=== PATIENT | female | born 1980 | race Caucasian/White ===

== ENCOUNTER 2016-05-17 12:43 | Inpatient (IN) | payer MEDICAID ==
[~2016-05-17] VITALS: Ht 157.5 cm; Wt 90.3 kg
[2016-05-17 13:02] VITALS: Ht 157.5 cm; Wt 90.3 kg
[2016-05-17 13:10] VITALS: BP 157/75; PULSE 54; RESP 20
[2016-05-17 13:50] LABS: ADD SCAN DIFF NO
[2016-05-17] MEDS ORDERED: MISOPROSTOL 200 MCG TAB PR PRN (14:00)
[2016-05-17] MEDS ORDERED: BUTORPHANOL 2 MG INJ IV PRN (14:00)
[2016-05-17] MEDS ORDERED: LACTATED RINGER'S 1,000 ML IV PRN (14:00)
[2016-05-17] MEDS ORDERED: CARBOPROST 250 MCG INJ IM PRN (14:00)
[2016-05-17] MEDS ORDERED: ACETAMINOPHEN/CODEINE #3 TAB PO PRN (14:00)
[2016-05-17] MEDS ORDERED: OXYTOCIN 30 UNITS/LR 500 ML IV SCH ×2 (14:00)
[2016-05-17] MEDS ORDERED: METHYLERGONOVINE 0.2 MG INJ IM PRN (14:00)
[2016-05-17] MEDS ORDERED: LIDOCAINE 1% (MPF) 30 ML INJ INJ PRN (14:00)
[2016-05-17] MEDS ORDERED: OXYTOCIN 30 UNITS/LR 500 ML IV PRN (14:00)
[2016-05-17] MEDS ORDERED: IBUPROFEN 600 MG TAB PO PRN (14:00)
[2016-05-17 14:01] LABS: ABNORMAL IP MESSAGE 1; BASOPHILS % 0.3 % (0.0-2.0); EOSINOPHILS # 0.1 10^3/ul (0.0-0.5); EOSINOPHILS % 1.6 % (0.0-7.0); HEMATOCRIT 29.3 % (37.0-47.0); HEMOGLOBIN 10.1 g/dl (12.0-16.0); LYMPHOCYTES % 32.1 % (15.0-51.0); MEAN CORPUSCULAR HEMOGLOBIN 30.1 pg (29.0-33.0); MEAN CORPUSCULAR HGB CONC 34.5 g/dl (32.0-37.0); MEAN CORPUSCULAR VOLUME 87.2 fl (82.0-101.0); MEAN PLATELET VOLUME 13.9 fl (7.4-10.4); MONOCYTE # 0.3 10^3/ul (0.3-0.9); MONOCYTES % 5.2 % (0.0-11.0); NEUTROPHIL # 3.8 10^3/ul (1.6-7.5); NEUTROPHILS % 60.5 % (39.0-77.0); PLATELET COUNT 83 10^3/UL (140-415); RED BLOOD COUNT 3.36 10^6/ul (4.20-5.40); RED CELL DISTRIBUTION WIDTH 12.4 % (11.5-14.5); WHITE BLOOD COUNT 6.3 10^3/ul (4.8-10.8)
[2016-05-17 14:11] LABS: INR 0.97; PROTIME 12.9 Sec (12.2-14.2)
[2016-05-17 14:12] LABS: ALBUMIN 2.9 g/dl (3.3-4.9); CHLORIDE 106 mmol/L (97-110); POTASSIUM 3.9 mmol/L (3.5-5.1); SODIUM 134 mmol/L (135-144)
[2016-05-17 14:14] LABS: ANION GAP 10 (8-16); BILIRUBIN,INDIRECT 0.3 mg/dl (0-1.1); BILIRUBIN,TOTAL 0.3 mg/dl (0.2-1.3); CARBON DIOXIDE 22 mmol/L (21-31); CREATININE 0.48 mg/dl (0.44-1.00)
[2016-05-17 14:15] LABS: ALBUMIN/GLOBULIN RATIO 0.96; ALKALINE PHOSPHATASE 146 IU/L (42-121); ASPARTATE AMINO TRANSFERASE 26 IU/L (15-46); BLOOD UREA NITROGEN 9 mg/dl (7-20); TOTAL PROTEIN 5.9 g/dl (6.1-8.1)
[2016-05-17 14:16] LABS: ALANINE AMINOTRANSFERASE 31 IU/L (13-69); CALCIUM 8.4 mg/dl (8.4-10.2); GLUCOSE 86 mg/dl (70-220)
[2016-05-17] MEDS: LACTATED RINGER'S 1,000 ML IV SCH ×2 (14:54→16:44)
[2016-05-17] MEDS ORDERED: PRENAT PO (15:24)
[2016-05-17] MEDS ORDERED: DINOPROSTONE 10 MG VAG SUPP VAG ONE (16:00)
--- NOTE | 2016-05-17 21:25 | HP ---
Date/Time of Note Date/Time of Note DATE: 05/17/16 TIME: 21:19 OB - History Hx of Present Free Text/Dictation sent in by NST for mild elevation of BPs Last Menstrual Period: Aug 14, 2015 Estimated Due Date: May 20, 2016 : 6 Para: 5 Care: Good Care Ultrasounds: Normal mid trimester US Obstetrical Complications: Gestational Diabetes Medical Complications: None Past Family/Social History * Past Medical, Surgical, Family and Obstetric Histories reviewed from chart. Blood Type: O+ Rubella: immune RPR/VDRL: Negative GBS Status: Unknown HBsAG: Negative OB Admission Exam Vital Signs Vital Signs Vital Signs Date Time Temp Pulse Resp B/P Pulse Ox O2 Delivery O2 Flow Rate FiO2 05/17/16 13:10 98.5 54 20 157/75 Room Air Physical Exam HEENT: WNL Heart: Rhythm Normal Lungs: Clear, Equal Abdomen: WNL Extremities: Normal Reflexes: Normal Cervical Dilatation: 1cm Effacement: 25% Station: -3 Membranes: Intact Heart Rate: 130's Accelerations: Accelerations Present Decelerations: No Decelerations Varibility: Moderate Contractions on Admission: None Last 72 hourBlood Glucose Bedside Glucose - 72 Hours Test 05/17/16 20:03 Bedside Glucose 94mg/dL (70-220) Last 72 hours Lab Results CBC & BMP 05/17/16 13:28 Liver Function Test 05/17/16 13:28 Alanine Aminotransferase (ALT/SGPT) 31 Albumin 2.9 L Alkaline Phosphatase 146 H Aspartate Amino Transf (AST/SGOT) 26 Direct Bilirubin 0.00 Total Protein 5.9 L OB Assessment/Plan Reason for admission: induction of labor Other Assessment: GDM Elevated BP Induction Method: per Misoprostol Protocol YELITZA DELVALLE MD May 17, 2016 21:25
[2016-05-17] MEDS ORDERED: MINERAL OIL LIGHT 10 ML VIAL TOP PRN (23:30)
[2016-05-18] MEDS: LACTATED RINGER'S 1,000 ML IV SCH ×3 (00:26→18:01)
[2016-05-18] MEDS ORDERED: MAGNESIUM SULFATE 3 GM in SOD CHLORIDE 0.9% 100 ML IVPB ONE (01:30)
[2016-05-18] MEDS: MAGNESIUM SULFATE 20 GM/500 ML 500 ML IV SCH ×2 (02:42→15:00)
[2016-05-18] MEDS ORDERED: LABETALOL HCL 20MG INJ IV ONE (04:45)
[2016-05-18] MEDS ORDERED: MINERAL OIL LIGHT 10 ML VIAL TOP ONE (08:00)
[2016-05-18] MEDS ORDERED: OXYTOCIN 30 UNITS/LR 500 ML IV SCH (16:00)
[2016-05-18 17:19] LABS: ADD SCAN DIFF NO
[2016-05-18 17:21] LABS: ABNORMAL IP MESSAGE 1; BASOPHILS % 0.2 % (0.0-2.0); EOSINOPHILS % 0.1 % (0.0-7.0); HEMATOCRIT 32.6 % (37.0-47.0); HEMOGLOBIN 10.9 g/dl (12.0-16.0); LYMPHOCYTES % 21.6 % (15.0-51.0); MEAN CORPUSCULAR HEMOGLOBIN 29.3 pg (29.0-33.0); MEAN CORPUSCULAR HGB CONC 33.4 g/dl (32.0-37.0); MEAN CORPUSCULAR VOLUME 87.6 fl (82.0-101.0); MEAN PLATELET VOLUME 13.1 fl (7.4-10.4); MONOCYTE # 0.4 10^3/ul (0.3-0.9); MONOCYTES % 4.1 % (0.0-11.0); NEUTROPHIL # 6.8 10^3/ul (1.6-7.5); NEUTROPHILS % 73.2 % (39.0-77.0); PLATELET COUNT 85 10^3/UL (140-415); RED BLOOD COUNT 3.72 10^6/ul (4.20-5.40); RED CELL DISTRIBUTION WIDTH 12.6 % (11.5-14.5); WHITE BLOOD COUNT 9.3 10^3/ul (4.8-10.8)
[2016-05-18] MEDS ORDERED: LACTATED RINGER'S 1,000 ML IV* SCH ×2 (18:53→22:49)
[2016-05-18] MEDS ORDERED: WITCH HAZEL/GLYCERIN PAD PR PRN ×2 (19:00→23:00)
[2016-05-18] MEDS ORDERED: MISOPROSTOL 200 MCG TAB PR PRN ×2 (19:00→23:00)
[2016-05-18] MEDS ORDERED: OXYTOCIN 30 UNITS/LR 500 ML IV PRN ×2 (19:00→23:00)
[2016-05-18] MEDS ORDERED: IBUPROFEN 600 MG TAB PO SCH (19:00)
[2016-05-18] MEDS ORDERED: DIPHENHYDRAMINE 25 MG CAP PO PRN (19:00)
[2016-05-18] MEDS ORDERED: ONDANSETRON 4 MG INJ IV PRN (19:00)
[2016-05-18] MEDS ORDERED: CARBOPROST 250 MCG INJ IM PRN ×2 (19:00→23:00)
[2016-05-18] MEDS ORDERED: LANOLIN 7 GM TUBE TOP PRN ×2 (19:00→23:00)
[2016-05-18] MEDS ORDERED: ZOLPIDEM 5 MG TAB PO PRN ×2 (19:00→23:00)
[2016-05-18] MEDS ORDERED: ACETAMINOPHEN/CODEINE #3 TAB PO PRN ×3 (19:00→23:00)
[2016-05-18] MEDS ORDERED: MULTIVIT/MIN/FOLATE/IRON/PREN TAB PO SCH (19:00)
--- NOTE | 2016-05-18 19:00 | LDN ---
Date/Time of Note Date/Time of Note DATE: 05/18/16 TIME: 18:56 Delivery Summary Patient complete and pushing. I was called to attend the delivery. Primary attending, Dr. Ro in OR at a procedure Placenta Delivered: Spontaneously Meconium: none Episiotomy: No Perineal laceration: 1 Laceration repair: first degree perineal laceration at [place], repaired after local infiltration with Lidocaine Anesthesia type: None Estimated blood loss: 500 Sponge & Needle done & correct: Yes All needle counts correct: Yes Any foreign bodies felt in the: No Problems: Delivery Information Sex Infant Sex: female Apgars 1 Minute: 8 5 Minute: 9 Suctioning Nose & mouth suctioned at bebe: Yes Delee suction performed: Yes Umbilical Cord Umbilical cord with: 3 Vessels Cord presentations: no nuchal cord Cord Blood was obtained: Yes Mother & Baby Disposition Disposition placenta delivered complete. 3 VC Weight : 4425 gram. MINERVA HALL MD May 18, 2016 19:00
[2016-05-18] MEDS ORDERED: GLUCOSE GEL 15 GRAM TUBE BUCCAL PRN ×2 (19:30→23:30)
[2016-05-18] MEDS ORDERED: GLUCOSE GEL 15 GRAM TUBE PO PRN ×4 (19:30→23:30)
[2016-05-18] MEDS ORDERED: DEXTROSE 50% 50 ML SYRINGE IV PRN ×4 (19:30→23:30)
[2016-05-18] MEDS ORDERED: GLUCAGON 1 MG INJ IM PRN ×2 (19:30→23:30)
[2016-05-18] MEDS ORDERED: MAGNESIUM SULFATE 2 GM/50 ML 50 ML IVPB SCH (20:00)
[2016-05-18] MEDS ORDERED: metFORMIN (XR) 500 MG TAB PO SCH ×2 (20:00→21:00)
[2016-05-18] MEDS ORDERED: SENNA/DOCUSATE NA (8.6MG/50MG) TAB PO SCH (21:00)
[2016-05-18] MEDS ORDERED: MAGNESIUM SULFATE 20 GM/500 ML 500 ML IV SCH ×2 (21:00→22:49)
[2016-05-18 22:30] VITALS: BP 135/76; PULSE 60; RESP 18
[2016-05-18] MEDS: OXYTOCIN 30 UNITS/LR 500 ML IV SCH (22:34)
[2016-05-18] MEDS ORDERED: METHYLERGONOVINE 0.2 MG INJ IM PRN (23:00)
[2016-05-18] MEDS ORDERED: DIBUCAINE 1% 30 GM OINT PR PRN (23:00)
[2016-05-18] MEDS ORDERED: BENZOCAINE 20% 56 ML SPRAY TOP PRN (23:00)
[2016-05-18 23:30] VITALS: BP 162/86; PULSE 69; RESP 20
[2016-05-18] MEDS: IBUPROFEN 600 MG TAB PO SCH (23:33)
[2016-05-19] VITALS (19 sets, daily range): BP systolic 121–155; BP diastolic 65–86; PULSE 61–78; RESP 16–21
[2016-05-19] MEDS: OXYTOCIN 30 UNITS/LR 500 ML IV SCH ×2 (03:41→08:58)
[2016-05-19] MEDS: IBUPROFEN 600 MG TAB PO SCH ×3 (05:47→17:45)
[2016-05-19] MEDS: ACCU-CHEK XX SCH ×4 (07:30→20:51)
[2016-05-19] MEDS: metFORMIN (XR) 500 MG TAB PO SCH ×2 (08:16→17:45)
[2016-05-19] MEDS: MAGNESIUM HYDROXIDE 30ML CUP PO SCH ×2 (08:16→21:01)
[2016-05-19] MEDS: SENNA/DOCUSATE NA (8.6MG/50MG) TAB PO SCH ×2 (08:16→21:01)
[2016-05-19 08:46] LABS: ADD SCAN DIFF NO
[2016-05-19 08:55] LABS: ABNORMAL IP MESSAGE 1; BASOPHILS % 0.1 % (0.0-2.0); EOSINOPHILS % 0.4 % (0.0-7.0); HEMATOCRIT 26.8 % (37.0-47.0); HEMOGLOBIN 9.2 g/dl (12.0-16.0); LYMPHOCYTES # 2.3 10^3/ul (0.8-2.9); LYMPHOCYTES % 24.4 % (15.0-51.0); MEAN CORPUSCULAR HEMOGLOBIN 30.3 pg (29.0-33.0); MEAN CORPUSCULAR HGB CONC 34.3 g/dl (32.0-37.0); MEAN CORPUSCULAR VOLUME 88.2 fl (82.0-101.0); MEAN PLATELET VOLUME 13.6 fl (7.4-10.4); MONOCYTE # 0.6 10^3/ul (0.3-0.9); MONOCYTES % 6.7 % (0.0-11.0); NEUTROPHIL # 6.4 10^3/ul (1.6-7.5); NEUTROPHILS % 68.1 % (39.0-77.0); PLATELET COUNT 79 10^3/UL (140-415); RED BLOOD COUNT 3.04 10^6/ul (4.20-5.40); RED CELL DISTRIBUTION WIDTH 12.5 % (11.5-14.5); WHITE BLOOD COUNT 9.4 10^3/ul (4.8-10.8)
--- NOTE | 2016-05-19 17:52 | DS ---
Date/Time of Note Date/Time of Note home next day DATE: 05/19/16 TIME: 17:50 Obstetrical Discharge Record Final Diagnosis Final Diagnosis: Term delivered Vaginal Delivery Obstetrical Delivery: Spontaneous Complications Gestational Diabetes, Preg induced Hypertension Condition on Discharge Physical Assessment Last Vitals: see nurses notes Voiding: Yes Bowel Movement: Yes Breast: Soft, non-tender, Filling Fundus: Firm Abdomen and Incision: soft BS + Episiotomy: NA Calf Tenderness: No Patient Condition: Good YELITZA DELVALLE MD May 19, 2016 17:52
--- NOTE | 2016-05-19 17:54 | PD.PPDC ---
[facility] Discharge Instruction Provider Information Physician Information 36 y/o female had vaginal delivery Diagnosis Final Diagnosis: S/P vaginal delivery Condition Patient Condition: Good Diet Diet: Resume Regular Diet Activity/Restrictions Activity: Normal Activity May Shower Restrictions: Nothing in the Vagina Return to Work or School: July 04, 2016 Follow-up Follow-up with Physician: 4, Week/Weeks (in clinic ) Return to clinic for OB Instructions: Breast Tenderness Depression YELITZA DELVALLE MD May 19, 2016 17:54
[2016-05-19] MEDS ORDERED: IBUP-1542 PO (17:55)
[2016-05-19] MEDS ORDERED: METF500T9 PO (17:57)
[2016-05-20 03:45] VITALS: BP 112/62; PULSE 53; RESP 18
[2016-05-20] MEDS: IBUPROFEN 600 MG TAB PO SCH ×4 (05:25→17:35)
[2016-05-20 07:20] VITALS: BP 123/61; PULSE 62; RESP 19
[2016-05-20] MEDS: ACCU-CHEK XX SCH ×3 (07:30→15:00)
[2016-05-20] MEDS: metFORMIN (XR) 500 MG TAB PO SCH ×2 (08:15→17:35)
[2016-05-20] MEDS: MAGNESIUM HYDROXIDE 30ML CUP PO SCH (09:00)
[2016-05-20] MEDS ORDERED: VARICELLA VACCINE LIVE/PF 1,350 UNIT/0.5 ML ML SC* ONE ×2 (09:00)
[2016-05-20] MEDS ORDERED: DIPHTH/TET/ACEL PERTUSS (ADULT) 0.5 ML VIAL IM* ONE ×2 (09:00)
[2016-05-20] MEDS: SENNA/DOCUSATE NA (8.6MG/50MG) TAB PO SCH (09:00)
[2016-05-20] MEDS ORDERED: MEASLES,MUMPS,RUBELLA VACCINE INJ SC* ONE ×2 (09:00)
[2016-05-20 16:00] VITALS: BP 132/82; PULSE 81; RESP 19
== END 2016-05-20 19:00 | disposition home or self-care (01) | DRG 775 ==
LOC: L-D 12:49 → PP1 05-18 22:28
PROVIDERS: ADMIT Obstetrics & Gynecology; ATTEND Obstetrics & Gynecology
PROC: 10E0XZZ Delivery of Products of Conception, External Approach (ICD-10-PCS; principal; 2016-05-18)
PROC: 0HQ9XZZ Repair Perineum Skin, External Approach (ICD-10-PCS; 2016-05-18)
DX: O24.429 Gestational diabetes mellitus in childbirth, unspecified control (principal); O60.14X0 Preterm labor third trimester with preterm delivery third trimester, not applicable or unspecified; O70.0 First degree perineal laceration during delivery; Z3A.36 36 weeks gestation of pregnancy; Z37.0 Single live birth
CPT/HCPCS: 80053; 82962; 83735; 84560; 85025; 85610; 85730; 86592; 86850; 86900; 86901; 86920; 87340; 90715; 90716; 99464; J2590; J3475; J7120